=== PATIENT | male | born 1965 | race American Indian/Alaskan Native ===

== ENCOUNTER 2020-04-03 10:41 | Emergency (ER) | payer SELFPAY ==
--- NOTE | 2020-04-03 10:44 | Event Note ---
ED Screening Note ED Screening Note: TO ER WITH POLYURIA, DRY MOUTH AND WEIGHT LOSS BS 476 This initial assessment/diagnostic orders/clinical plan/treatment(s) is/are subject to change based on patients health status, clinical progression and re- assessment by fellow clinical providers in the ED. Further treatment and workup at subsequent clinical providers discretion. Patient/guardian urged not to elope from the ED as their condition may be serious if not clinically assessed and managed. Initial orders include: SWEETIE CABRERA
[2020-04-03 11:43] LABS: Hematocrit 39.6 % (35.5-45.6); Hemoglobin 13.3 gm/dl (11.8-15.2); Mean Corpuscular HGB Conc 34 % (32-34); Mean Corpuscular Volume 93 fl (84-94); Platelet Count 269 K/mm3 (140-440); Red Blood Count 4.28 M/mm3 (3.65-5.03)
[2020-04-03 12:00] LABS: Bilirubin,Urine NEG (Negative); Blood,Urine NEG (Negative); Color,Urine Straw (Yellow); Mucus,Urine FEW /HPF; Protein,Urine <15 mg/dL mg/dL (Negative); Urobilinogen,Urine < 2.0 mg/dL (<2.0)
--- NOTE | 2020-04-03 12:01 | XRay Report ---
CHEST 2 VIEWS INDICATION / CLINICAL INFORMATION: WEAKNESS. COMPARISON: None available. FINDINGS: SUPPORT DEVICES: None. HEART / MEDIASTINUM: No significant abnormality. LUNGS / PLEURA: No significant pulmonary or pleural abnormality. No pneumothorax. ADDITIONAL FINDINGS: No significant additional findings. IMPRESSION: 1. No acute findings. Signer Name: Rodríguez Bell MD Signed: 04/03/2020 11:56 AM Workstation Name: [id number]
[2020-04-03 12:02] LABS: RBC,Urine < 1.0 /HPF (0.0-6.0); WBC,Urine < 1.0 /HPF (0.0-6.0)
[2020-04-03 12:27] LABS: Alanine Aminotransferase 23 units/L (7-56); Albumin 4.1 g/dL (3.9-5); BUN/Creatinine Ratio 11; Blood Urea Nitrogen 9 mg/dL (9-20); Hemolysis Index 9
[2020-04-03] MEDS ORDERED: SODIUM CHLORIDE 0.9% 1000 ML 1,000 ML IV ONE ×2 (14:46)
--- NOTE | 2020-04-03 14:48 | Emergency Department Report ---
ED General Adult HPI - General Chief complaint: Hyperglycemia Stated complaint: WEIGHT LOSS, CHECK GLUCOSE LEVEL Time Seen by Provider: 04/03/20 10:44 Source: patient Mode of arrival: Ambulatory Limitations: No Limitations - History of Present Illness Initial comments: Patient is a 54-year-old male presents emergency department for evaluation of 2 months of polyuria and polydipsia. Patient denies having primary care doctor, denies change in complaint, states he presented today because he "knew something was wrong." Patient denies chest pain or shortness of breath, denies headache, denies localized weakness, denies abdominal pain, denies nausea vomiting diarrhea. - Related Data Previous Rx's Medication Instructions Recorded Last Taken Type metFORMIN [Glucophage] 500 mg PO QDAY #30 tab 04/03/20 Unknown Rx Allergies Allergy/AdvReac Type Severity Reaction Status Date / Time No Known Allergies Allergy Unverified 11/02/19 10:55 ED Review of Systems ROS: Stated complaint: WEIGHT LOSS, CHECK GLUCOSE LEVEL Other details as noted in HPI Comment: All other systems reviewed and negative ED Past Medical Hx - Past Medical History Previous Medical History?: No - Social History Smoking Status: Never Smoker Substance Use Type: None - Medications Home Medications: Home Medications Medication Instructions Recorded Confirmed Last Taken Type metFORMIN [Glucophage] 500 mg PO QDAY #30 tab 04/03/20 Unknown Rx ED Physical Exam - General Limitations: No Limitations General appearance: alert, in no apparent distress - Head Head exam: Present: atraumatic, normocephalic - Eye Eye exam: Present: normal appearance - ENT ENT exam: Present: mucous membranes moist - Neck Neck exam: Present: normal inspection - Respiratory Respiratory exam: Present: normal lung sounds bilaterally. Absent: respiratory distress - Cardiovascular Cardiovascular Exam: Present: regular rate, normal rhythm - GI/Abdominal GI/Abdominal exam: Present: soft, normal bowel sounds - Rectal Rectal exam: Present: deferred - Extremities Exam Extremities exam: Present: normal inspection - Back Exam Back exam: Present: normal inspection - Neurological Exam Neurological exam: Present: alert, oriented X3 - Psychiatric Psychiatric exam: Present: normal affect, normal mood - Skin Skin exam: Present: warm, dry, intact, normal color. Absent: rash ED Course Vital Signs 04/03/20 04/03/20 04/03/20 10:54 15:08 16:44 Temperature 98.1 F 98.1 F Pulse Rate 80 60 67 Respiratory 18 14 17 Rate Blood Pressure 148/86 Blood Pressure 137/78 145/84 [Right] O2 Sat by Pulse 97 100 100 Oximetry - Reevaluation(s) Reevaluation #1: 04/03/20 15:25 Patient initially treated with IV normal saline 1 L x 2 Reevaluation #2: 04/03/20 15:25 Discussed at length importance of following up with primary care doctor for chronic management of diabetes and formal evaluation for other chronic disorders. ED Medical Decision Making - Lab Data Result diagrams: 04/03/20 11:26 04/03/20 11:26 Labs 04/03/20 04/03/20 04/03/20 11:20 11:26 11:26 WBC 8.9 RBC 4.28 Hgb 13.3 Hct 39.6 MCV 93 MCH 31 MCHC 34 RDW 13.0 L Plt Count 269 VBG pH Sodium 130 L Potassium 3.9 Chloride 93.9 L Carbon Dioxide 26 Anion Gap 14 BUN 9 Creatinine 0.8 Estimated GFR > 60 BUN/Creatinine Ratio 11 Glucose 452 H Ketones Quantitative Calcium 9.0 Total Bilirubin 0.30 AST 19 ALT 23 Alkaline Phosphatase 182 H Troponin T Total Protein 7.6 Albumin 4.1 Albumin/Globulin Ratio 1.2 Urine Color Straw Urine Turbidity Clear Urine pH 5.0 Ur Specific [place] 1.031 H Urine Protein <15 mg/dl Urine Glucose (UA) >=500 Urine Ketones Neg Urine Blood Neg Urine Nitrite Neg Urine Bilirubin Neg Urine Urobilinogen < 2.0 Ur Leukocyte Esterase Neg Urine WBC (Auto) < 1.0 Urine RBC (Auto) < 1.0 Urine Mucus Few 04/03/20 04/03/20 04/03/20 11:26 11:26 11:26 WBC RBC Hgb Hct MCV MCH MCHC RDW Plt Count VBG pH 7.341 Sodium Potassium Chloride Carbon Dioxide Anion Gap BUN Creatinine Estimated GFR BUN/Creatinine Ratio Glucose Ketones Quantitative Negative Calcium Total Bilirubin AST ALT Alkaline Phosphatase Troponin T < 0.010 Total Protein Albumin Albumin/Globulin Ratio Urine Color Urine Turbidity Urine pH Ur Specific [place] Urine Protein Urine Glucose (UA) Urine Ketones Urine Blood Urine Nitrite Urine Bilirubin Urine Urobilinogen Ur Leukocyte Esterase Urine WBC (Auto) Urine RBC (Auto) Urine Mucus Vital Signs 04/03/20 04/03/20 10:54 15:08 Temperature 98.1 F Pulse Rate 80 60 Respiratory 18 14 Rate Blood Pressure 148/86 Blood Pressure 137/78 [Right] O2 Sat by Pulse 97 100 Oximetry Labs 04/03/20 04/03/20 04/03/20 11:20 11:26 11:26 WBC 8.9 RBC 4.28 Hgb 13.3 Hct 39.6 MCV 93 MCH 31 MCHC 34 RDW 13.0 L Plt Count 269 VBG pH Sodium 130 L Potassium 3.9 Chloride 93.9 L Carbon Dioxide 26 Anion Gap 14 BUN 9 Creatinine 0.8 Estimated GFR > 60 BUN/Creatinine Ratio 11 Glucose 452 H Ketones Quantitative Calcium 9.0 Total Bilirubin 0.30 AST 19 ALT 23 Alkaline Phosphatase 182 H Troponin T Total Protein 7.6 Albumin 4.1 Albumin/Globulin Ratio 1.2 Urine Color Straw Urine Turbidity Clear Urine pH 5.0 Ur Specific [place] 1.031 H Urine Protein <15 mg/dl Urine Glucose (UA) >=500 Urine Ketones Neg Urine Blood Neg Urine Nitrite Neg Urine Bilirubin Neg Urine Urobilinogen < 2.0 Ur Leukocyte Esterase Neg Urine WBC (Auto) < 1.0 Urine RBC (Auto) < 1.0 Urine Mucus Few 04/03/20 04/03/20 04/03/20 11:26 11:26 11:26 WBC RBC Hgb Hct MCV MCH MCHC RDW Plt Count VBG pH 7.341 Sodium Potassium Chloride Carbon Dioxide Anion Gap BUN Creatinine Estimated GFR BUN/Creatinine Ratio Glucose Ketones Quantitative Negative Calcium Total Bilirubin AST ALT Alkaline Phosphatase Troponin T < 0.010 Total Protein Albumin Albumin/Globulin Ratio Urine Color Urine Turbidity Urine pH Ur Specific [place] Urine Protein Urine Glucose (UA) Urine Ketones Urine Blood Urine Nitrite Urine Bilirubin Urine Urobilinogen Ur Leukocyte Esterase Urine WBC (Auto) Urine RBC (Auto) Urine Mucus - Radiology Data Radiology results: report reviewed Findings [facility] [address] [place] [address] XRay Report Signed Patient: SAE GRIFFITH MR#: [id number] 29 : 1965 Acct:[id number] Age/Sex: 54 / M ADM Date: 04/03/20 Loc: ED Attending Dr: Ordering Physician: SHON ACOSTA Date of Service: 04/03/20 Procedure(s): XR chest routine 2V Accession Number(s): [id number] cc: SHON Medrano Time In Minutes: CHEST 2 VIEWS INDICATION / CLINICAL INFORMATION: WEAKNESS. COMPARISON: None available. FINDINGS: SUPPORT DEVICES: None. HEART / MEDIASTINUM: No significant abnormality. LUNGS / PLEURA: No significant pulmonary or pleural abnormality. No pneumothorax. ADDITIONAL FINDINGS: No significant additional findings. IMPRESSION: 1. No acute findings. Signer Name: Rodríguez Bell MD Signed: 04/03/2020 11:56 AM Workstation Name: [id number] Transcribed By: TAZ Dictated By: Rodríguez Bell MD Electronically Authenticated By: Rodríguez Bell MD Signed Date/Time: 04/03/20 1156 Critical care attestation.: If time is entered above; I have spent that time in minutes in the direct care of this critically ill patient, excluding procedure time. ED Disposition Clinical Impression: Diabetes mellitus, new onset Disposition: DC-01 TO HOME OR SELFCARE Is pt being admited?: No Condition: Stable Instructions: Type 2 Diabetes Mellitus, Diagnosis, Adult, Type 2 Diabetes Mellitus, Self Care, Adult, Diabetes Mellitus Type 2 in Adults (ED) Additional Instructions: Follow-up with primary care doctor in 1 to 2 days for reevaluation as further care is necessary. Return to the emergency department for worsening symptoms. Prescriptions: metFORMIN [Glucophage] 500 mg PO QDAY #30 tab Referrals: PRIMARY MD ROYAL [Primary Care Provider] - 3-5 Days NORAH ALEMAN MD [Staff Physician] - 3-5 Days
[2020-04-03 16:45] VITALS: BP 145/84
== END 2020-04-03 16:45 | disposition home or self-care (01) ==
LOC: ED 10:41
DX: E11.9 Type 2 diabetes mellitus without complications (principal); Z79.899 Other long term (current) drug therapy
CPT/HCPCS: 36415; 71046; 80053; 81001; 82010; 82805; 82962; 84484; 85027; 96360; 96361; 99284; J7030